=== PATIENT | male | born 1985 ===

== ENCOUNTER 2019-03-14 08:19 | Day surgery (SDC) | payer OTHER ==
[2019-03-14] VITALS (11 sets, daily range): BP systolic 107–130; BP diastolic 58–85
[~2019-03-14] VITALS: Ht 170.2 cm; Wt 87.1 kg
[2019-03-14] MEDS ORDERED: LR 1000ml ONE (08:30)
[2019-03-14] MEDS ORDERED: Propofol 200mg/20ml IV ONE (08:30)
[2019-03-14] MEDS ORDERED: Lidocaine 1% MPF 10mg/ml 5ml ONE (08:30)
--- NOTE | 2019-03-14 08:44 | Short Stay Surgery H&P ---
History of Present Illness History of Present Illness Chief Complaint Abdominal pains/GERDs. HPI Ace Campbell is a 34 year old male who was admitted on for GERDS/abdominal pains. Patient History Allergies: Coded Allergies: No Known Allergies (Unverified , 03/13/19) Past Surgeries: (1) H/O shoulder surgery Review of Systems Cardiovascular: Reports: no symptoms Respiratory: Reports: no symptoms Skeletal: Reports: trauma Gastrointestinal: Reports: gastro esophageal reflux disease Genitourinary: Reports: no symptoms Neurologic: Reports: no symptoms Endocrine: Reports: no symptoms Hematologic: Reports: no symptoms Physical Exam Skin: normal HENT: normal Heart: normal Lungs: normal Abdomen: abnormal Extremities: normal Genitourinary: normal Plan Plan of Care Upper GI. endoscopy and biopsy Preop Interventions None. Summary of Findings See the reports Attestation Are the patient's medical conditions optimized for surgery? Attestation Response: yes Daisy Mejía MD Mar 14, 2019 08:44
[2019-03-14] MEDS ORDERED: Midazolam 2mg/2ml Inj IVP PRN (08:45)
[2019-03-14] MEDS ORDERED: Atropine Inj 1mg/10ml Syr IV PRN (08:45)
[2019-03-14] MEDS ORDERED: fentaNYL 100 mcg/2 mL IV PRN (08:45)
[2019-03-14] MEDS ORDERED: LR 1000ml 1,000 ML IVLG SCH (08:45)
[2019-03-14] MEDS ORDERED: DiphenhydrAMINE 50mg/ml Inj IVP PRN (08:45)
--- NOTE | 2019-03-14 08:45 | Pre-Procedure Note/Attestation ---
Pre-Procedure Note/Attestation Complete Prior to Procedure Planned Procedure: left Procedure Narrative: Examination of the upper GI tract via endoscopy with obtaining biopsy. Indications for Procedure Pre-Operative Diagnosis: R/O Peptic ulcer/Gastritis/esophagitis. Attestation I attest that I discussed the nature of the procedure; its benefits; risks and complications; and alternatives (and the risks and benefits of such alternatives ), prior to the procedure, with the patient (or the patient's legal clearance representative). I attest that, if there was a reasonable possibility of needing a blood transfusion, the patient (or the patient's legal clearance representative) was given the [facility] standardized written summary, pursuant to the [place] Blood Safety Act ([place] Health and Safety Code # 1645, as amended). I attest that I re-evaluated the patient just prior to the surgery and that there has been no change in the patient's H&P, except as documented below: Daisy Mejía MD Mar 14, 2019 08:45
[2019-03-14] MEDS ORDERED: ZANTAC150 MG ORAL (09:03)
--- NOTE | 2019-03-14 09:09 | Endoscopy Procedure Note ---
Endoscopy Procedure Note General Indication for Procedure: Abdominal pains/GERDS Procedures Performed: EGD - Mild gastritis of the antrum, biopsies obtained from antrum and mid gastric area of greator curvature. Specimen: yes Pt Tolerated Procedure Well: Yes Estimated Blood Loss: none Anesthesia Anesthesiologist: Dr. Sanchez Anesthesia: moderate sedation Medications Medication Given: see anesthesia record Inserted Devices Implant(s) used?: No Quality Quality of Bowel Preparation: Excellent GI Core Measures 50 yrs or older w/o bx or poly: Not Applicable 10yrs. F/U recommended: Not Applicable If not recommended, why?: Med reason:<3 yrs.: System Reason:<3 yrs.: Daisy Mejía MD Mar 14, 2019 09:09
--- NOTE | 2019-03-14 09:10 | Discharge Instructions ---
Discharge Instructions Discharge Instructions Follow up with: Call the doctor to send you the results by mail. For Congestive Heart Failure Reminder Report to your physician any weight gain of 5 pounds or more in one week. Daisy Mejía MD Mar 14, 2019 09:10
--- NOTE | 2019-03-14 09:11 | Anethesia Preoperative Eval ---
Anesthesia Pre-op PMH/ROS General Date of Evaluation: Mar 14, 2019 Time of Evaluation: 08:29 Anesthesiologist: dee ASA Score: ASA 2 Mallampati Score Class I : Soft palate, uvula, fauces, pillars visible Class II: Soft palate, uvula, fauces visible Class III: Soft palate, base of uvula visible Class IV: Only hard plate visible Mallampati Classification: Class II Surgeon: leonidas Diagnosis: gerd Surgical Procedure: egd Anesthesia History: none Family History: no anesthesia problems Allergies: Coded Allergies: No Known Allergies (Unverified , 03/13/19) Medications: see eMAR Patient NPO?: Yes Past Medical History Gastrointestinal/Genitourinary: Reports: GERD Neurologic/Psychiatric: Reports: other - dizziness Musculoskeletal/Integumentary: Reports: other - back pain PSxH Narrative: shoulder surgery Anesthesia Pre-op Phys. Exam Physician Exam Constitutional: NAD Neurologic: CN 2-12 intact Cardiovascular: RRR Respiratory: CTA Gastrointestinal: S/NT/ND Airway Exam Mallampati Score: Class II MO: limited Neck: flexible TMD: 2fb ROM: limited Anesthesia Pre-op A/P Risk Assessment & Plan Assessment: asa2 Plan: mac Status Change Before Surgery: No Pre-Antibiotics Drug: Amanda Emanuel MD Mar 14, 2019 09:11
--- NOTE | 2019-03-14 09:31 | Immediate Post-Op Evaluation ---
Immediate Post-Op Evalulation Immediate Post-Op Evalulation Procedure: egd w/bx Date of Evaluation: Mar 14, 2019 Time of Evaluation: 09:27 IV Fluids: 200ml lr Blood Products: none Estimated Blood Loss: negligible Blood Pressure Systolic: 120 Blood Pressure Diastolic: 83 Pulse Rate: 71 Respiratory Rate: 18 O2 Sat by Pulse Oximetry: 100 Temperature (Fahrenheit): 97.2 Pain Score (1-10): 0 Nausea: No Vomiting: No Complications none Patient Status: awake, reacts, patent Hydration Status: adequate Drug: Amanda Emanuel MD Mar 14, 2019 09:31
--- NOTE | 2019-03-14 09:32 | 48 Hour Post Anesthesia Eval ---
Post Anesthesia Evaluation Procedure: egd w/bx Date of Evaluation: Mar 14, 2019 Time of Evaluation: 09:31 Blood Pressure Systolic: 124 0: 85 Pulse Rate: 63 Respiratory Rate: 18 Temperature (Fahrenheit): 97.2 O2 Sat by Pulse Oximetry: 100 Airway: patent Nausea: No Vomiting: No Pain Intensity: 0 Hydration Status: adequate Cardiopulmonary Status: stable Mental Status/LOC: patient returned to baseline Post-Anesthesia Complications: none Follow-up care needed: N/A Amanda Sanchez MD Mar 14, 2019 09:32
--- NOTE | 2019-03-14 11:30 | Pre-op HX & Phy Repo 2 SIG ---
DATE OF ADMISSION: 03/14/2019 HISTORY OF PRESENT ILLNESS: The patient is a 34-year-old non-Vietnamese speaking gentleman who is being seen by me at this point prior to undergoing the procedure for upper GI endoscopy for which he has been scheduled to receive for evaluation of his gastrointestinal symptoms that he has been suffering subsequent to his work injury and receiving multiple medications. The patient basically was seen in my office approximately three weeks ago when I examined him at that time and presently he is complaining of pain being experienced over the epigastric area, which is also radiating towards the chest, associated with rather severe heartburn particularly that he cannot tolerate spicy foods. He reported that he has occasional nausea and some difficulty swallowing, but is not that significant. He reports that since he has had history of heartburn, he has been treated with medications in the past such as omeprazole and Mylanta, but currently he is taking Zantac though he mentioned to me that he could not tolerate this medication producing headaches and dizziness few weeks ago when I saw him. He also denies having any bleeding from his gastrointestinal tract in form of hematemesis, melena, hematochezia, etc. He denies having any weight loss. He has only intermittent diarrhea and constipation that it goes along with abdominal pain and I felt that in the past when I saw him it would be consistent with underlying irritable bowel syndrome as well as, but he needs further examinations in this regard including CT scan of the abdomen and possible colonoscopic examination. However, the patient has not been authorized for follow-up and treatment in my office and therefore the only authorization has been made to produce upper GI endoscopy at this point. The applicant had been injured at job site while he was working and as such his process was that he was loading lift, and pulling a heavy loaded lift and basically he was putting it on the pallet and one of the wheels of the pallet got stuck on the ground and it rolled over hand and his fell over and injured by that, which was injured. The injury was over his right shoulder and the head area. Subsequently, the patient was started on multiple medications including nonsteroidal anti-inflammatory agents and analgesics and has been seen by different physicians for the treatment of this condition. Further examination by other physicians also has been noticed to have nausea and constipation and heartburn as well. PAST MEDICAL HISTORY: Basically nonsignificant. He denies having high blood pressure, arthritis, cholesterol, etc. SURGICAL HISTORY: He has had surgery over his right shoulder related to his work accident in 2017. ALLERGIES: Nonsignificant. HABITS: The applicant denies drinking alcohol or smoking cigarettes. MEDICATIONS: Current medications the applicant is taking ranitidine at this time with occasional Tylenol, otherwise not significant. REVIEW OF SYSTEMS: Basically history of present illness. The applicant denies any chest pain, shortness of breath or cough, etc. The main symptoms at this point is his GI tract, which is causing the abdominal pain, which is major problem that he is complaining of. Also, he has been experiencing pain over his right shoulder and lower back and the neck. PHYSICAL EXAMINATION: GENERAL: Reveals alert and well-oriented gentleman, who does not seem to be in any acute distress. He looks overweight, well developed and nourished. VITAL SIGNS: Blood pressure 122/78, pulse rate 60 per minute, respiration 14 per minute, oxygen saturation 99%, and temperature 97.6. HEENT: Normocephalic. Pupils equal in size and reactive to light and accommodation. No visible jaundice. NECK: Supple. No JVD, thyromegaly, or adenopathy. CHEST: Clear to auscultation and percussion. No rales or rhonchi. HEART: S1, S2 normal. Regular rhythm. No gallops or murmur. ABDOMEN: Soft, but obese. There are areas of tenderness mostly over the epigastric area. There is no hepatosplenomegaly and no palpable mass. Bowel sounds are adequately present. No percussion tenderness noted at this time. EXTREMITIES: Within normal limits. No pretibial edema, cyanosis, or clubbing. CENTRAL NERVOUS SYSTEM: Grossly normal. PRELIMINARY IMPRESSION: 1. Epigastric pain of uncertain etiology, rule out NSAID-induced gastropathy such as peptic ulcer disease, gastritis, esophagitis. 2. Possible irritable bowel syndrome causing intermittent diarrhea and constipation along with abdominal pain. 3. History of bodily injury, work-related. RECOMMENDATIONS: The applicant at this time seems to be quite stable to undergo the procedure for upper GI endoscopy for which he has been scheduled. He understands the risks and benefits and signed the consent. COMMENTS: The applicant was told that since he is not authorized to come back to the office for further followup and treatment, we are going to send him the results of this endoscopic procedure to be given to his private medical doctor to give him more treatment in regards to the findings. Said Rebeca Mejía DR: KEL JOB#: [id number] CC:
--- NOTE | 2019-03-14 13:15 | Operative Note - Dictated ---
DATE OF OPERATION: 03/14/2019 SURGEON: Daisy Mejía M.D. PROCEDURE: Esophagogastroduodenoscopy with biopsy. PREOPERATIVE DIAGNOSES: Abdominal pain, chronic gastroesophageal reflux, history of NSAID consumption, rule out peptic ulcer disease. POSTOPERATIVE DIAGNOSIS: Evidence of mild antritis, which was biopsied, otherwise normal upper GI endoscopy. Also biopsy taken from the mid gastric body greater curvature side as well. MEDICATION USED: Per Dr. Best. INSTRUMENT: GIF Olympus upper GI video endoscope. DESCRIPTION OF PROCEDURE: The patient after arriving in the endoscopy unit, was told about risks and benefits of the procedure, which he accepted and signed informed consent. At this time, he was put on the left lateral decubitus position. After adequate IV sedation, the scope was gently passed through the cricopharyngeal area, was lodged into the upper esophagus and gradually advanced towards gastroesophageal junction. The entire length of esophagus looked normal. No evidence of any inflammatory process, ulceration, or pathology was found. At this time, the scope was advanced towards the GE junction revealing normal findings without any evidence of Ndiaye's or hiatal hernia. Subsequently, the scope was passed into the stomach, gastric cavity was distended with insufflation of air. Gradually, the areas of the fundus and the body and the antrum were examined. The only findings here was some mild erythema in the antral area, prepyloric section. However, the other two parts of the upper gastric cavity was normal. The retroflexion maneuver was also applied and the GE junction also looked normal. At this time, one biopsy from mid gastric body greater curvature side and also another one from the antral area was obtained and subsequently the scope was passed through the pylorus. First and second portion of duodenum were found to be completely normal. Finally, the scope was pulled out and the procedure was terminated. The patient tolerated the procedure well and left the endoscopy room in a good condition. Daisy Mejía M.D. DR: ANNY JOB#: [id number] CC:
== END 2019-03-14 11:00 | disposition home or self-care (01) ==
LOC: GAS 08:19
DX: K21.9 Gastro-esophageal reflux disease without esophagitis (principal); R10.9 Unspecified abdominal pain; K29.50 Unspecified chronic gastritis without bleeding; R19.7 Diarrhea, unspecified; K59.00 Constipation, unspecified; E66.3 Overweight; Z68.30 Body mass index [BMI] 30.0-30.9, adult
CPT/HCPCS: 43239; J2704; 94003; 94150